=== PATIENT | female | born 1990 | race Hispanic/Latino ===

== ENCOUNTER 2021-09-24 20:20 | Inpatient (IN) | payer BC ==
[~2021-09-24] VITALS: Ht 154.9 cm; Wt 68.0 kg
[2021-09-24 21:23] LABS: BASOPHILS % (AUTO) 0.3 % (0.0-5.0); EOSINOPHILS % (AUTO) 1.6 % (0.0-8.0); LYMPHOCYTES % (AUTO) 11.7 % (21.0-51.0); MEAN CORPUSCULAR HEMOGLOBIN 30.4 pg (27.0-33.0); MEAN CORPUSCULAR HGB CONC 32.2 g/dL (32.0-36.0); MEAN CORPUSCULAR VOLUME 94.6 fL (79-99); MONOCYTES % (AUTO) 6.2 % (3.0-13.0); NEUTROPHILS % (AUTO) 73.4 % (40.0-77.0); NUCLEATED RED BLOOD CELLS 0.8 % (0.0-0.19); PLATELET COUNT (AUTO) 412 K/uL (130-400); RED BLOOD CELL COUNT(AUTO) 1.84 MIL/uL (4.00-5.50); RED CELL DISTRIBUTION WIDTH 14.4 % (11.0-15.5); WHITE BLOOD COUNT (AUTO) 12.8 K/uL (4.8-10.8)
[2021-09-24 21:27] LABS: HEMATOCRIT 17.4 % (36-48)
[2021-09-24 21:35] LABS: CREATININE 0.8 mg/dL (0.5-1.5); POTASSIUM 3.2 mmol/L (3.5-5.1)
[2021-09-24 21:37] LABS: INR 0.97 (0.85-1.15); PROTHROMBIN TIME 10.6 SEC (9.6-11.6)
[2021-09-24 21:40] LABS: ALBUMIN 2.4 g/dL (3.5-5.0); BILIRUBIN,TOTAL 0.6 mg/dL (0.2-1.0); MAGNESIUM 1.9 mg/dL (1.80-2.40)
[2021-09-24] MEDS ORDERED: IOHEXOL 350 MG/ML 100ML INFUS..BTL IV ONE (22:43)
[2021-09-24] MEDS ORDERED: ONDANSETRON 4MG INJ IVP ONE (23:00)
[2021-09-24] MEDS ORDERED: MORPHINE 2 MG SYG IVP ONE (23:00)
[2021-09-24] MEDS ORDERED: MORPHINE 4 MG SYG IV PRN (23:30)
[2021-09-24] MEDS ORDERED: ACETAMINOPHEN 325 MG TAB PO PRN (23:30)
[2021-09-24] MEDS ORDERED: ONDANSETRON 4MG INJ IV PRN (23:30)
[2021-09-24] MEDS ORDERED: 0.9%NACL 1000ML 1,000 ML IV SCH (23:30)
[2021-09-24] MEDS ORDERED: MORPHINE 2 MG SYG IV PRN (23:30)
[2021-09-25] VITALS (11 sets, daily range): BP systolic 99–131; BP diastolic 56–78
[2021-09-25] MEDS: KCL 20 MEQ ERTAB PO PRN ×3 (00:27→05:07)
[2021-09-25] MEDS ORDERED: LIDOCAINE HCL-MPF 1% 2ML VIAL IV PRN (00:30)
[2021-09-25] MEDS ORDERED: POTASSIUM CHLORIDE 10% ELIXIR 20 MEQ/15 ML UDCUP PO PRN (00:30)
[2021-09-25] MEDS ORDERED: POTASSIUM CHLORIDE 20MEQ/100ML 100 ML IV PRN (00:30)
[2021-09-25] MEDS ORDERED: [UNRECOGNIZED DRUG - OTHER] PO (02:53)
[2021-09-25] MEDS ORDERED: [UNRECOGNIZED DRUG - OTHER] PO (02:53)
[2021-09-25] MEDS ORDERED: [UNRECOGNIZED DRUG - OTHER] PO (02:53)
[2021-09-25] MEDS ORDERED: [UNRECOGNIZED DRUG - OTHER] (02:53)
[2021-09-25] MEDS ORDERED: [UNRECOGNIZED DRUG - OTHER] PO (02:53)
[2021-09-25 04:27] LABS: BASOPHILS % (AUTO) 0.4 % (0.0-5.0); EOSINOPHILS % (AUTO) 2.1 % (0.0-8.0); HEMATOCRIT 21.3 % (36-48); LYMPHOCYTES % (AUTO) 16.3 % (21.0-51.0); MEAN CORPUSCULAR HEMOGLOBIN 31.4 pg (27.0-33.0); MEAN CORPUSCULAR HGB CONC 32.4 g/dL (32.0-36.0); MEAN CORPUSCULAR VOLUME 96.8 fL (79-99); NEUTROPHILS % (AUTO) 67.7 % (40.0-77.0); NUCLEATED RED BLOOD CELLS 0.9 % (0.0-0.19); PLATELET COUNT (AUTO) 349 K/uL (130-400); RED CELL DISTRIBUTION WIDTH 14.3 % (11.0-15.5); WHITE BLOOD COUNT (AUTO) 9.8 K/uL (4.8-10.8)
[2021-09-25 04:45] LABS: INR 0.97 (0.85-1.15); PROTHROMBIN TIME 10.6 SEC (9.6-11.6)
[2021-09-25 04:47] LABS: PARTIAL THROMBOPLASTIN TIME 26.2 SEC (26.3-35.5)
[2021-09-25 04:51] LABS: CREATININE 0.7 mg/dL (0.5-1.5); MAGNESIUM 1.9 mg/dL (1.80-2.40); POTASSIUM 3.8 mmol/L (3.5-5.1)
[2021-09-25] MEDS ORDERED: FAMOTIDINE 20MG VIAL IV SCH (09:00)
[2021-09-25] MEDS ORDERED: SULFAMETHOX-TMP DS 800/160 TAB PO SCH (09:00)
[2021-09-25 10:47] LABS: HEMATOCRIT 26.4 % (36-48)
[2021-09-25] MEDS ORDERED: LACTULOSE 20 GM/30 ML UDCUP PO SCH (13:00)
[2021-09-25 16:10] LABS: HEMATOCRIT 25.9 % (36-48)
[2021-09-25] MEDS ORDERED: SULF1TAB42 PO (16:51)
== END 2021-09-25 17:50 | disposition home or self-care (01) | DRG 812 ==
LOC: EDH 20:20 → EDHIP 23:28 → WSH 09-25 00:50
PROVIDERS: ADMIT Internal Medicine; ATTEND Internal Medicine
PROC: 30233N1 Transfusion of Nonautologous Red Blood Cells into Peripheral Vein, Percutaneous Approach (ICD-10-PCS; principal; 2021-09-25)
DX: D62 Acute posthemorrhagic anemia (principal); E87.6 Hypokalemia; Z20.822 Contact with and (suspected) exposure to COVID-19; D72.829 Elevated white blood cell count, unspecified
CPT/HCPCS: 36415; 71045; 74177; 80048; 80053; 83605; 83735; 84100; 84145; 84703; 85014; 85018; 85025; 85610; 85730; 86850; 86870; 86900; 86901; 86905; 86922; 87040; 87635; 93005; 99291; C9803; G0378; J2405; J3490; J7030; P9016; Q9967